=== PATIENT | female | born 1985 | race Caucasian/White ===

== ENCOUNTER → 2025-03-20 08:32 | Outpatient (REF) | payer BC, SELFPAY | LOC: PNTC 08:32 | PROVIDERS: ATTENDING PHYSICIAN Obstetrics & Gynecology | DX: Z36.0 Encounter for antenatal screening for chromosomal anomalies (principal) | CPT/HCPCS: 76801; 76813 ==

== ENCOUNTER 2025-09-23 07:57 | Observation (INO) | payer BC, SELFPAY ==
[2025-09-23 08:07] VITALS: BP 102/59; BMI 25.2
== END 2025-09-23 09:39 | disposition home or self-care (01) ==
LOC: LDRP 07:57
PROVIDERS: ADMITTING PHYSICIAN Obstetrics & Gynecology; FAMILY PHYSICIAN Student in an Organized Health Care Education/Training Program
DX: O36.8130 Decreased fetal movements, third trimester, not applicable or unspecified (principal); Z3A.39 39 weeks gestation of pregnancy
CPT/HCPCS: 36415; 59025; 86850; 86900; 86901; G0378

== ENCOUNTER 2025-09-26 08:44 | Inpatient (IN) | payer BC, SELFPAY ==
[2025-09-26 09:09] VITALS: BP 114/68; BMI 26.6
[2025-09-26] MEDS: LR 1000 IV (09:15)
[2025-09-26 10:13] LABS: Hematocrit 36.3 % (37.0-47.0); Hemoglobin 12.4 g/dL (12.0-16.0); Mean Corp Hgb Conc. 34.2 g/dL (33.0-37.0); Mean Corpuscular Volume 86.6 fL (81.0-99.0); Nucleated Red Blood Cells % 0 %; Platelet Count 197 10^3/uL (130-400); Red Cell Dist. Width 14.2 % (11.5-14.5)
[2025-09-26] MEDS: PITOCIN 30 UNITS/NSS 500 ML IV ×2 (10:45→19:12)
[2025-09-26] MEDS: SUBLIMAZE 100 MCG EPIDURAL (13:11)
[2025-09-26] MEDS: FENTANYL/BUPIVACAINE 100 EPIDURAL (13:12)
[2025-09-26] MEDS: TYLENOL 650 MG PO (19:29)
[2025-09-26] MEDS: COLACE 100 MG PO (19:29)
[2025-09-26] MEDS: MOTRIN 600 MG PO (19:29)
[2025-09-26] MEDS: ZOFRAN 4 MG IV (19:46)
[2025-09-26 20:33] LABS: Glucose - Point of Care 104 mg/dl (70-99)
[2025-09-27] MEDS: MOTRIN 600 MG PO ×3 (02:57→20:09)
[2025-09-27] MEDS: TYLENOL 650 MG PO ×3 (02:58→13:58)
[2025-09-27 03:44] LABS: Hematocrit 34.1 % (37.0-47.0); Hemoglobin 11.7 g/dL (12.0-16.0)
[2025-09-27] MEDS: PRENATAL PLUS 1 TABLET PO (08:57)
[2025-09-27] MEDS: COLACE 100 MG PO ×2 (08:57→19:45)
[2025-09-28] MEDS: MOTRIN 600 MG PO (04:28)
[2025-09-28] MEDS: COLACE 100 MG PO (07:58)
[2025-09-28] MEDS: PRENATAL PLUS 1 TABLET PO (07:58)
[2025-09-29 16:10] LABS: Syphilis/T. pallidum Ab Reflex Negative (Negative)
== END 2025-09-28 12:39 | disposition home or self-care (01) | DRG 807 ==
LOC: LDRP 08:44
PROVIDERS: Obstetrics & Gynecology; ADMITTING PHYSICIAN Obstetrics & Gynecology
PROC: 10E0XZZ Delivery of Products of Conception, External Approach (ICD-10-PCS; 2025-09-26)
PROC: 10907ZC Drainage of Amniotic Fluid, Therapeutic from Products of Conception, Via Natural or Artificial Opening (ICD-10-PCS; 2025-09-26)
PROC: 0KQM0ZZ Repair Perineum Muscle, Open Approach (ICD-10-PCS; 2025-09-26)
PROC: 3E033VJ Introduction of Other Hormone into Peripheral Vein, Percutaneous Approach (ICD-10-PCS; 2025-09-26)
DX: O48.0 Post-term pregnancy (principal); Z37.0 Single live birth; Z3A.40 40 weeks gestation of pregnancy; O70.1 Second degree perineal laceration during delivery; O76 Abnormality in fetal heart rate and rhythm complicating labor and delivery; O43.893 Other placental disorders, third trimester
CPT/HCPCS: 82962; 85014; 85018; 85025; 86780; 86850; 86900; 86901; 88307